=== PATIENT | male | born 1970 | race Caucasian/White ===

== ENCOUNTER 2017-10-20 17:13 | Emergency (ER) | payer OTHER ==
[2017-10-20 17:39] VITALS: BP 103/62
[2017-10-20] MEDS ORDERED: Ibuprofen ADULT LIQ* 600 MG/30 ML UDC PO ONE (18:03)
--- NOTE | 2017-10-20 18:10 | UC ---
General HPI - HPI Summary HPI Summary: Patient presents complaining of fever, chills, sweating and cough for the past 3 days. He admits to being short of breath and reports some muscle soreness from all the coughing as well. he does have a history of asthma. Does report some chest pain from muscle soreness but denies any cardiac type pain and offers no other complaints. - History of Current Complaint Chief Complaint: UCRespiratory Stated Complaint: COUGH, CHILLS, BACK PAIN Time Seen by Provider: 10/20/17 18:02 Hx Obtained From: Patient Onset/Duration: Gradual Onset Timing: Constant Pain Intensity: 10 Associated Signs & Symptoms: Positive: Cough, Nausea, SOB, Wheezing - Allergy/Home Medications Allergies/Adverse Reactions: Allergies Allergy/AdvReac Type Severity Reaction Status Date / Time aspirin Allergy Hives Verified 10/20/17 17:45 ibuprofen Allergy Hives Verified 10/20/17 17:45 Penicillins Allergy Hives Verified 10/20/17 17:45 bee stings Allergy Altered Uncoded 10/20/17 17:45 Mental Status slim bonnie with hot sauce Allergy Anaphylatic Uncoded 10/20/17 17:45 Shock Home Medications: Home Medications Acetaminophen [APAP] 1,300 mg PO ONCE PRN 10/20/17 [History Confirmed 10/20/17] Albuterol HFA INHALER* [Ventolin HFA Inhaler*] 3 puff INH Q4H PRN 10/20/17 [ History Confirmed 10/20/17] Buprenorphine HCl/Naloxone HCl [Suboxone 8 mg-2 mg Sl Film] 1 each SL BID [History Confirmed 10/20/17] PMH/Surg Hx/FS Hx/Imm Hx - Additional Past Medical History Additional PMH: Hep C, 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 Respiratory History: Asthma - Surgical History Surgical History: Yes Surgery Procedure, Year, and Place: LEFT FOOT SURGERY tarsal tunnel 2011; right femer fx with lillie placement 2015 - Family History Known Family History: Positive: None - Social History Occupation: Unemployed Lives: With Family Alcohol Use: None Substance Use Type: None Smoking Status (MU): Heavy Every Day Tobacco Smoker Type: Cigarettes Amount Used/How Often: 1/2 PK DAILY Length of Time of Smoking/Using Tobacco: 27 yrs Have You Smoked in the Last Year: Yes - Immunization History Vaccination Up to Date: Yes Review of Systems Constitutional: Fever, Chills Skin: Negative Eyes: Negative ENT: Negative Respiratory: Shortness Of Breath, Cough Cardiovascular: Negative Gastrointestinal: Nausea Genitourinary: Negative Motor: Negative Neurovascular: Negative Musculoskeletal: Myalgia Neurological: Negative Psychological: Negative Is Patient Immunocompromised?: No All Other Systems Reviewed And Are Negative: Yes Physical Exam Triage Information Reviewed: Yes Appearance: Thin Vital Signs: Initial Vital Signs Temp 101 F 10/20/17 17:29 Pulse 90 10/20/17 17:29 Resp 16 10/20/17 17:29 BP 103/62 10/20/17 17:29 Pulse Ox 97 10/20/17 17:29 Vital Signs Reviewed: Yes Eyes: Positive: Conjunctiva Clear ENT: Positive: Pharynx normal, TMs normal. Negative: Nasal congestion, Nasal drainage Neck: Positive: Supple, Nontender, No Lymphadenopathy Respiratory: Positive: Lungs clear, Normal breath sounds, Other: - congested cough Cardiovascular: Positive: RRR, No Murmur. Negative: Murmur:Sys:Grade _?_/, Murmur:Dys:Grade _?_/ Abdomen Description: Positive: Nontender, No Organomegaly, Soft. Negative: Distended, Guarding Bowel Sounds: Positive: Present Musculoskeletal: Positive: ROM Intact Neurological: Positive: Alert Psychological: Positive: Age Appropriate Behavior Skin Exam: Normal Diagnostics - Radiology No standard instances Radiology Interpretation Completed By: Radiologist - No radiographic evidence of acute cardiopulmonary disease. Re-Evaluation - Re-Evaluation First Eval Re-Evaluation Time: 18:46 Change: Improved - pt notes feeling better. less cough and easier to breathe. Course/Dx - Course Course Of Treatment: non toxic. no concern for uti/pyelonephritis or endocarditis. he has s/s's c/w pumonary infection with asthma flare thus will tx for asthma flare and possible early pneumonia with close f/u. - Differential Dx - Multi-Symptom Provider Diagnoses: asthma flare, fever, possible early pneumonia Discharge - Sign-Out/Discharge Documenting (check all that apply): Discharge/Admit/Transfer - Discharge Plan Condition: Improved Disposition: HOME Prescriptions: Albuterol HFA INHALER* [Ventolin HFA Inhaler*] 2 puff INH Q6H #1 mdi DOXYcycline CAP(*) [DOXYcycline 100MG CAP(*)] 100 mg PO BID #20 cap predniSONE TAB* [Deltasone 20 MG TAB*] 40 mg PO DAILY 4 Days #8 tab Patient Education Materials: Asthma (ED), Fever in Adults (ED) Referrals: Patrica Morrison MD [Primary Care Provider] - 5 Days Additional Instructions: GO TO ER FOR ANY WORSENING - Billing Disposition and Condition Condition: IMPROVED Disposition: Home
[2017-10-20] MEDS ORDERED: Albuterol 2.5 MG/3 ML NEB.SOL* (0.083%) INH ONE (18:16)
[2017-10-20] MEDS ORDERED: predniSONE TAB* 20 MG PO ONE (18:17)
--- NOTE | 2017-10-20 18:37 | RAD ---
INDICATION: Fever and cough x3 days COMPARISON: None TECHNIQUE: PA and lateral views of the chest were obtained. FINDINGS: The heart and mediastinum are normal in size and contour. The lungs are grossly clear. There is no evidence of large pleural effusion. Visualized bones are normal for the patient's age. There is no radiographic evidence of free air beneath the diaphragm IMPRESSION: No radiographic evidence of acute cardiopulmonary disease.
== END 2017-10-20 18:58 | disposition home or self-care (01) ==
LOC: UCCORT 17:13
DX: J45.909 Unspecified asthma, uncomplicated (principal); R50.9 Fever, unspecified; Z88.6 Allergy status to analgesic agent; Z88.0 Allergy status to penicillin; F17.210 Nicotine dependence, cigarettes, uncomplicated
CPT/HCPCS: 71046; 99213; A9270-GY; G0463; J7512

== ENCOUNTER 2018-05-12 16:09 | Emergency (ER) | payer OTHER ==
[2018-05-12 16:39] VITALS: BP 108/55
--- NOTE | 2018-05-12 17:04 | UC ---
Upper Extremity HPI - HPI Summary HPI Summary: Iv in left ac a few days ago-has developed pain swelling and erythema proximal to site---no lymph streaking or swollen lymph nodes - History of Current Complaint Chief Complaint: UCSkin Stated Complaint: LEFT ARM SWELLING Time Seen by Provider: 05/12/18 16:27 Hx Obtained From: Patient ?: No Onset/Duration: Sudden Onset, Other - worse over the past couple of hours Pain Intensity: 6 Pain Scale Used: 0-10 Numeric Location Of Pain: Is Discrete @ - left anterior forearm Character: Aching, Throbbing Alleviating Factor(s): Nothing Associated Signs And Symptoms: Positive: Swelling, Redness Related History: Dominant Hand Right - Allergies/Home Medications Allergies/Adverse Reactions: Allergies Allergy/AdvReac Type Severity Reaction Status Date / Time aspirin Allergy pt denies Verified 05/12/18 16:43 allergy ibuprofen Allergy pt denies Verified 05/12/18 16:43 allergy Penicillins Allergy pt denies Verified 05/12/18 16:43 allergy bee stings Allergy Altered Uncoded 05/12/18 16:43 Mental Status slim bonnie with hot sauce Allergy Anaphylatic Uncoded 05/12/18 16:43 Shock Home Medications: Home Medications Albuterol HFA INHALER* [Ventolin HFA Inhaler*] 2 puff INH Q6H PRN 05/12/18 [ History Confirmed 05/12/18] PMH/Surg Hx/FS Hx/Imm Hx Previously Healthy: No - in recovery [facility] GI/ History: Other Other GI/ History: Hepatitis C - Surgical History Surgical History: Yes Surgery Procedure, Year, and Place: LEFT FOOT SURGERY tarsal tunnel 2011; right femer fx with lillie placement 2015 - Family History Known Family History: Positive: None - Social History Occupation: Employed Full-time Lives: With Family Alcohol Use: None Substance Use Type: None Smoking Status (MU): Heavy Every Day Tobacco Smoker Type: Cigarettes Amount Used/How Often: 1/2 PK DAILY Length of Time of Smoking/Using Tobacco: 27 yrs Have You Smoked in the Last Year: Yes Cessation Counseling: Patient Advised to Stop - Immunization History Vaccination Up to Date: Yes Review of Systems All Other Systems Reviewed And Are Negative: Yes Constitutional: Positive: Negative Skin: Positive: Negative - and erythema tenderness proximal to iv site, Other Eyes: Positive: Negative ENT: Positive: Negative Respiratory: Positive: Negative Cardiovascular: Positive: Negative Gastrointestinal: Positive: Negative Genitourinary: Positive: Negative Motor: Positive: Negative Neurovascular: Positive: Negative Musculoskeletal: Positive: Negative Neurological: Positive: Negative Psychological: Positive: Negative Is Patient Immunocompromised?: No Physical Exam Triage Information Reviewed: Yes Appearance: Well-Appearing, No Pain Distress, Thin Vital Signs: Initial Vital Signs Temp 98.8 F 05/12/18 16:26 Pulse 81 05/12/18 16:26 Resp 20 05/12/18 16:26 BP 108/55 05/12/18 16:26 Pulse Ox 98 05/12/18 16:26 Vital Signs Reviewed: Yes Eye Exam: Normal Eyes: Positive: Conjunctiva Clear ENT Exam: Normal ENT: Positive: Normal ENT inspection, Hearing grossly normal. Negative: Trismus , Muffled voice, Hoarse voice Neck exam: Normal Neck: Positive: Supple, Nontender, No Lymphadenopathy Respiratory Exam: Normal Respiratory: Positive: Chest non-tender, Lungs clear, Normal breath sounds, No respiratory distress Cardiovascular Exam: Normal Cardiovascular: Positive: RRR, Pulses Normal, Brisk Capillary Refill Musculoskeletal Exam: Other Musculoskeletal: Positive: Edema @ - left proximal forearm Neurological Exam: Normal Neurological: Positive: Alert, Muscle Tone Normal Psychological Exam: Normal Skin Exam: Other Skin: Positive: Other - old iv site left ac Upper Extremity Course/Dx - Course Course Of Treatment: to hospital for further evaluation and us- - Differential Dx/Diagnosis Provider Diagnosis: Phlebitis and thrombophlebitis of superficial veins of upper extremities - Physician Notification/Consults Discussed Patient Care With: Lula Martinez Time Discussed With Above Provider: 17:15 Discharge - Sign-Out/Discharge Documenting (check all that apply): Patient Departure All imaging exams completed and their final reports reviewed: No Studies - Discharge Plan Condition: Fair Disposition: HOME-RECOMMEND TO ED Patient Education Materials: Phlebitis (ED) Referrals: Patrica Morrison MD [Primary Care Provider] - If Needed Additional Instructions: The safest course of events is for you to seek a higher level of care in an emergency department to assure you do not have a blood cot in your arm - Billing Disposition and Condition Condition: FAIR Disposition: Home-Recommend to ED
== END 2018-05-12 17:18 | disposition home health service (06) ==
LOC: UCCORT 16:09
DX: T81.72XA Complication of vein following a procedure, not elsewhere classified, initial encounter (principal); I80.8 Phlebitis and thrombophlebitis of other sites; F19.10 Other psychoactive substance abuse, uncomplicated; F17.210 Nicotine dependence, cigarettes, uncomplicated; Z88.6 Allergy status to analgesic agent; Z88.2 Allergy status to sulfonamides; Z91.030 Bee allergy status; Z91.018 Allergy to other foods; Y84.8 Other medical procedures as the cause of abnormal reaction of the patient, or of later complication, without mention of misadventure at the time of the procedure; Y92.9 Unspecified place or not applicable
CPT/HCPCS: 99212; G0463